=== PATIENT | male | born 1930 | race Caucasian/White ===

== ENCOUNTER 2016-10-11 13:28 | Emergency (ER) | payer MEDICARE, OTHER ==
[~2016-10-11] VITALS: Ht 172.7 cm; Wt 72.1 kg
[~2016-10-11 13:28] MED LIST: ASPI81TA82 PO; CLOP75 PO; COLA100C PO; ISTA0.5S EACH EYE; MAGN30S PO; MSM1000C4 PO; ROSU40 PO; SAW160TA PO; TRAM50 PO; TRAV0.00 EACH EYE
[2016-10-11 13:40] VITALS: BP 150/78; PULSE 65; RESP 16; TEMP 99.1; O2SAT 96
[2016-10-11] MEDS ORDERED: SODIUM CHLORIDE 0.9% FLUSH 5 ML FLUSH IVF PRN (14:00)
[2016-10-11 14:22] LABS: AUTOMATED NEUTROPHIL # 2.2 TH/MM3 (1.8-7.7); BASOPHIL % 0.9 % (0.0-2.0); EOSINOPHIL # 0.1 TH/MM3 (0-0.4); EOSINOPHIL % 1.6 % (0.0-4.0); HEMATOCRIT 38.3 % (39.0-51.0); LYMPH % 15.7 % (9.0-44.0); LYMPHOCYTE # 0.5 TH/MM3 (1.0-4.8); MEAN CELL VOLUME 86.8 FL (80.0-100.0); MEAN CORPUSCULAR HEMOGLOBIN 29.5 PG (27.0-34.0); MONO % 18.8 % (0.0-8.0); PLATELET COUNT 164 TH/MM3 (150-450); RED BLOOD COUNT 4.41 MIL/MM3 (4.50-5.90); RED CELL DISTRIBUTION WIDTH 13.6 % (11.6-17.2); WHITE BLOOD COUNT 3.4 TH/MM3 (4.0-11.0)
[2016-10-11 14:29] LABS: POTASSIUM 4.3 MEQ/L (3.5-5.1)
[2016-10-11 14:31] LABS: HEMO FLAGS AUTO DIFF
[2016-10-11 14:32] LABS: BICARBONATE 28.8 MEQ/L (21.0-32.0)
--- NOTE | 2016-10-11 14:33 | PD ---
HPI Chief Complaint: Fall Time Seen by Provider: 13:48 Travel History International Travel<30 days: No Contact w/Intl Traveler<30days: No Traveled to known affect area: No History of Present Illness HPI Patient is an 86-year-old male who is currently on Coumadin, presents to emergency room after a trip and fall. Patient reports that he was walking outside and tripped over a curb, reports that he fell and landed on his face. Patient reports that "I have a cut above my left eyebrow, it looks pretty bad." Patient reports that the last time he had his INR checked, was a week ago and INR was 1.8. Patient does take Coumadin as he has history of heart stents as well as a pacement. Patient reports no loss of consciousness after fall. Patient denies headache at this time. Patient reports that his tetanus is up-to -date. Patient with no vision changes, patient denies pain to his neck. Patient denies chest pain or shortness of breath. Patient with no other complaints. PFSH Past Medical History Hx Anticoagulant Therapy: Yes (COUMADIN) Arthritis: Yes Asthma: No Autoimmune Disease: No Blood Disorders: No Anxiety: No Depression: No Heart Rhythm Problems: Yes Cancer: No Cardiac Catheterization: Yes Cardiovascular Problems: Yes (2 STENTS, PM, SOLANO ) High Cholesterol: Yes Chemotherapy: No Chest Pain: Yes Congestive Heart Failure: No COPD: No Coronary Artery Disease: Yes Diabetes: No Diminished Hearing: No Endocrine: No GERD: No Glaucoma: No Genitourinary: No Headaches: No Hepatitis: No Hiatal Hernia: No Hypertension: Yes Immune Disorder: No Inguinal Hernia: Yes (BILAT GROINS WITH REPAIR) Implanted Vascular Access Dvce: Yes Kidney Stones: Yes Musculoskeletal: Yes (arthritis) Neurologic: No Psychiatric: No Reproductive: No Respiratory: No Immunizations Current: Yes Migraines: No Myocardial Infarction: Yes (X1) Radiation Therapy: No Renal Failure: No Seizures: No Sickle Cell Disease: No Sleep Apnea: No Thyroid Disease: No Ulcer: No Past Surgical History Abdominal Surgery: Yes (bilat ing hernia and mesh placement) AICD: No Appendectomy: No Arteriovenous Shunt: No Body Medical Devices: CARDIAC STENTS Cardiac Surgery: Yes (pacemaker) Cholecystectomy: No Coronary Stent: Yes (X 2) Ear Surgery: No Endocrine Surgery: No Eye Surgery: No Genitourinary Surgery: No Gynecologic Surgery: No Insulin Pump: No Joint Replacement: No Oral Surgery: No Pacemaker: No Thoracic Surgery: No Other Surgery: Yes (SANTINO ANAL 1988) Family History Family History: Negative Social History Alcohol Use: Yes (2 OZ DAILY ) Tobacco Use: No Substance Use: No Allergies-Medications (Allergen,Severity, Reaction): Coded Allergies: Lipitor (Verified Allergy, Severe, HALLUCINATION, 10/11/16) Oxycontin (Verified Allergy, Severe, HALLUCINATION, 10/11/16) Reported Meds & Prescriptions Reported Meds & Active Scripts Active Reported Warfarin 7.5 Mg Tab 7.5 Mg PO DAILY Atorvastatin (Atorvastatin Calcium) 40 Mg Tab 40 Mg PO HS Timolol Opth Drops 0.5 % Soln 1 Drop EACH EYE BID Saw [place] ([place]ren[place] Repens) 450 Mg Cap 450 Mg PO DAILY Review of Systems General / Constitutional: No: Fever Eyes: No: Visual changes HENT: No: Headaches, Lightheadedness Cardiovascular: No: Chest Pain or Discomfort Respiratory: No: Shortness of Breath Gastrointestinal: No: Abdominal Pain Genitourinary: No: Dysuria Musculoskeletal: No: Pain Skin: Positive Other (laceration about left eyebrow ), No Rash Neurologic: No: Weakness Psychiatric: No: Depression Endocrine: No: Polydipsia Hematologic/Lymphatic: No: Easy Bruising Physical Exam Narrative GENERAL: Patient with no acute distress SKIN: Warm and dry. Patient with 4 cm linear laceration above left eyebrow - bleeding controlled at this time. HEAD: Atraumatic. Normocephalic. EYES: Pupils equal and round. No scleral icterus. No injection or drainage. ENT: No nasal bleeding or discharge. Mucous membranes pink and moist. NECK: Trachea midline. No JVD. Patient with no midline tenderness CARDIOVASCULAR: Regular rate and rhythm. No murmur appreciated. RESPIRATORY: No accessory muscle use. Clear to auscultation. Breath sounds equal bilaterally. GASTROINTESTINAL: Abdomen soft, non-tender, nondistended. Hepatic and splenic margins not palpable. MUSCULOSKELETAL: No obvious deformities. No clubbing. No cyanosis. No edema. NEUROLOGICAL: Awake and alert. No obvious cranial nerve deficits. Motor grossly within normal limits. Normal speech. PSYCHIATRIC: Appropriate mood and affect; insight and judgment normal. Data Data Last Documented VS Vital Signs Date Time Temp Pulse Resp B/P Pulse Ox O2 Delivery O2 Flow Rate FiO2 10/11/16 15:50 66 16 152/76 98 10/11/16 13:40 99.1 Orders Basic Metabolic Panel (Bmp) (10/11/16 13:57) Complete Blood Count With Diff (10/11/16 13:57) Prothrombin Time / Inr (Pt) (10/11/16 13:57) Act Partial Throm Time (Ptt) (10/11/16 13:57) Ct Brain W/O Iv Contrast(Rout) (10/11/16 13:57) Ct Cerv Spine W/O Contrast (10/11/16 13:57) Ct Facial Bones W/O Iv Cont (10/11/16 13:57) Iv Access Insert/Monitor (10/11/16 13:57) Wound Care (10/11/16 13:57) Sodium Chloride 0.9% Flush (Ns Flush) (10/11/16 14:00) Lidocai-Epi 1%-1:100,000 Inj (Xylocaine- (10/11/16 15:15) Labs Laboratory Tests Test 10/11/16 14:10 White Blood Count 3.4 TH/MM3 Red Blood Count 4.41 MIL/MM3 Hemoglobin 13.0 GM/DL Hematocrit 38.3 % Mean Corpuscular Volume 86.8 FL Mean Corpuscular Hemoglobin 29.5 PG Mean Corpuscular Hemoglobin 34.0 % Concent Red Cell Distribution Width 13.6 % Platelet Count 164 TH/MM3 Mean Platelet Volume 8.3 FL Neutrophils (%) (Auto) 63.0 % Lymphocytes (%) (Auto) 15.7 % Monocytes (%) (Auto) 18.8 % Eosinophils (%) (Auto) 1.6 % Basophils (%) (Auto) 0.9 % Neutrophils # (Auto) 2.2 TH/MM3 Lymphocytes # (Auto) 0.5 TH/MM3 Monocytes # (Auto) 0.6 TH/MM3 Eosinophils # (Auto) 0.1 TH/MM3 Basophils # (Auto) 0.0 TH/MM3 CBC Comment AUTO DIFF Differential Total Cells 100 Counted Neutrophils % (Manual) 75 % Band Neutrophils % 2 % Lymphocytes % 14 % Monocytes % 8 % Eosinophils % 1 % Neutrophils # (Manual) 2.6 TH/MM3 Differential Comment FINAL DIFF MANUAL Prothrombin Time 17.7 SEC Prothromb Time International 1.6 RATIO Ratio Activated Partial 33.8 SEC Thromboplast Time Sodium Level 137 MEQ/L Potassium Level 4.3 MEQ/L Chloride Level 101 MEQ/L Carbon Dioxide Level 28.8 MEQ/L Anion Gap 7 MEQ/L Blood Urea Nitrogen 12 MG/DL Creatinine 0.90 MG/DL Estimat Glomerular Filtration 80 ML/MIN Rate Random Glucose 103 MG/DL Calcium Level 8.7 MG/DL MDM Medical Decision Making Medical Screen Exam Complete: Yes Emergency Medical Condition: Yes Interpretation(s) Vital Signs Date Time Temp Pulse Resp B/P Pulse Ox O2 Delivery O2 Flow Rate FiO2 10/11/16 13:40 99.1 65 16 150/78 96 Differential Diagnosis Facial laceration, intracranial hemorrhage, scalp hematoma, scalp fracture, cervical spine fracture, coumadin coagulopathy Narrative Course Patient is an 86-year-old male who currently is on Coumadin, presents to emergency room after a trip and fall today. Reports that he was outside, reports that he tripped over a curb and landed on his face. Patient with no loss of consciousness at scene. Patient reports that he was able to get up and walk but noticed a laceration above his left eyebrow, patient here for laceration repair. Patient currently with no headache or dizziness or vision changes at this time. Patient with no complaints. Patient reports that tetanus is up-to-date. Will check INR Ct head, facial bones and neck ordered to evaluate for possible fracture/bleed. Vital Signs Date Time Temp Pulse Resp B/P Pulse Ox O2 Delivery O2 Flow Rate FiO2 10/11/16 15:50 66 16 152/76 98 10/11/16 13:40 99.1 65 16 150/78 96 CBC & BMP Diagram 10/11/16 14:10 Laboratory Tests Test 10/11/16 14:10 White Blood Count 3.4 TH/MM3 (4.0-11.0) Red Blood Count 4.41 MIL/MM3 (4.50-5.90) Hemoglobin 13.0 GM/DL (13.0-17.0) Hematocrit 38.3 % (39.0-51.0) Mean Corpuscular Volume 86.8 FL (80.0-100.0) Mean Corpuscular Hemoglobin 29.5 PG (27.0-34.0) Mean Corpuscular Hemoglobin 34.0 % Concent (32.0-36.0) Red Cell Distribution Width 13.6 % (11.6-17.2) Platelet Count 164 TH/MM3 (150-450) Mean Platelet Volume 8.3 FL (7.0-11.0) Neutrophils (%) (Auto) 63.0 % (16.0-70.0) Lymphocytes (%) (Auto) 15.7 % (9.0-44.0) Monocytes (%) (Auto) 18.8 % (0.0-8.0) Eosinophils (%) (Auto) 1.6 % (0.0-4.0) Basophils (%) (Auto) 0.9 % (0.0-2.0) Neutrophils # (Auto) 2.2 TH/MM3 (1.8-7.7) Lymphocytes # (Auto) 0.5 TH/MM3 (1.0-4.8) Monocytes # (Auto) 0.6 TH/MM3 (0-0.9) Eosinophils # (Auto) 0.1 TH/MM3 (0-0.4) Basophils # (Auto) 0.0 TH/MM3 (0-0.2) CBC Comment AUTO DIFF Differential Total Cells 100 Counted Neutrophils % (Manual) 75 % (16-70) Band Neutrophils % 2 % (0-6) Lymphocytes % 14 % (9-44) Monocytes % 8 % (0-8) Eosinophils % 1 % (0-4) Neutrophils # (Manual) 2.6 TH/MM3 (1.8-7.7) Differential Comment FINAL DIFF MANUAL Prothrombin Time 17.7 SEC (9.8-11.6) Prothromb Time International 1.6 RATIO Ratio Activated Partial 33.8 SEC Thromboplast Time (24.3-30.1) Sodium Level 137 MEQ/L (136-145) Potassium Level 4.3 MEQ/L (3.5-5.1) Chloride Level 101 MEQ/L (98-107) Carbon Dioxide Level 28.8 MEQ/L (21.0-32.0) Anion Gap 7 MEQ/L (5-15) Blood Urea Nitrogen 12 MG/DL (7-18) Creatinine 0.90 MG/DL (0.60-1.30) Estimat Glomerular Filtration 80 ML/MIN (>89) Rate Random Glucose 103 MG/DL (74-106) Calcium Level 8.7 MG/DL (8.5-10.1) INR is subtherapeutic at 1.6- patient will call Dr. Conroy for further coumadin managment Patient return to the emergency room in 48 hours for wound check. Signs and symptoms of when to return to the emergency room reviewed with patient. I did review all studies as well as all incidental findings with patient in detail. Suture removal in 7 days. Patients daughter at bedside, will drive him home. Last Impressions Maxillofacial CT 10/11/16 1280 Signed Impressions: Service Date/Time: Tuesday, October 11, 2016 14:16 - CONCLUSION: 1. Left frontal scalp laceration. No skull fracture seen. 2. Changes in the left maxillary sinus, including thickening of the lateral osseous wall, characteristic of chronic sinus disease. Dirk Colon MD Head CT 10/11/16 0897 Signed Impressions: Service Date/Time: Tuesday, October 11, 2016 14:16 - CONCLUSION: Normal examination for a patient of this age. No significant change has occurred. Ian Chung MD Cervical Spine CT 10/11/16 [id number] Signed Impressions: Service Date/Time: Tuesday, October 11, 2016 14:16 - CONCLUSION: 1. No acute bony fracture. 2. Diffuse primary bony degenerative changes, disc degeneration and disc space narrowing throughout the cervical spine. Ian Chung MD Diagnosis Primary Impression: Facial laceration Qualified Code: S01.81XA - Facial laceration, initial encounter Additional Impressions: Subtherapeutic international normalized ratio (INR) Head injury Qualified Code: S09.90XA - Head injury, initial encounter Patient Instructions: General Instructions Additional Instructions: Please call your primary care doctor first thing in the morning for earliest follow-up Your INR today was subtherapeutic, please call Dr. Johnnie Conroy and let them know that it your INR was 1.6 today and your Coumadin level will need to be adjusted. Please return to the emergency room or to your primary care doctor in 48 hours for wound check Return to ER if you notice any signs of infection, redness, drainage from ER wound. Place bacitracin to area and keep wound clean. Please follow-up with your primary care doctor or return to emergency room for suture removal in 7 days Please return to emergency room if symptoms progress or worsen Disposition: 01 DISCHARGE HOME Condition: Stable Brianna Santizo DO Oct 11, 2016 14:33
[2016-10-11 14:35] LABS: APTT (PATIENT) 33.8 SEC (24.3-30.1); INTERNATIONAL NORMALIZED RATIO 1.6 RATIO; PROTHROMBIN TIME - PATIENT 17.7 SEC (9.8-11.6)
--- NOTE | 2016-10-11 14:44 | RADHPO ---
EXAM DATE/TIME: 10/11/2016 14:16 [facility] COMPARISON: CT BRAIN W/O CONTRAST, December 11, 2015, 13:41. INDICATIONS : Fall today, laceration to left forehead. RADIATION DOSE: 56.13 CTDIvol (mGy) MEDICAL HISTORY : Myocardial infarction. SURGICAL HISTORY : Pacemaker. ENCOUNTER: Initial ACUITY: 1 day PAIN SCALE: 2/10 LOCATION: Left frontal head TECHNIQUE: Multiple contiguous axial images were obtained of the head. Using automated exposure control and adj ustment of the mA and/or kV according to patient size, radiation dose was kept as low as reasonably a chievable to obtain optimal diagnostic quality images. FINDINGS: CEREBRUM: The ventricles are normal for age. There is stable bilateral cortical atrophy. No evidence of midline shift, mass lesion, hemorrhage or acute infarction. No extra-axial fluid collections are seen. POSTERIOR FOSSA: The cerebellum and brainstem are intact. The 4th ventricle is midline. The cerebellopontine angle i s unremarkable. EXTRACRANIAL: The visualized portion of the orbits is intact. SKULL: The calvaria is intact. No evidence of skull fracture. CONCLUSION: Normal examination for a patient of this age. No significant change has occurred. Ian Chung MD on October 11, 2016 at 14:41 Board Certified Radiologist. This report was verified electronically.
[2016-10-11] MEDS ORDERED: ATOR40TA16 PO (14:46)
[2016-10-11] MEDS ORDERED: WARF-21 PO (14:46)
[2016-10-11] MEDS ORDERED: SAW450CA2 PO (14:46)
[2016-10-11] MEDS ORDERED: TIMO0.5S30 EACH EYE (14:46)
--- NOTE | 2016-10-11 14:54 | RADHPO ---
EXAM DATE/TIME: 10/11/2016 14:16 [facility] COMPARISON: No previous studies available for comparison. INDICATIONS : Fall today, laceration to left forehead. RADIATION DOSE: 26.41 CTDIvol (mGy) MEDICAL HISTORY : Myocardial infarction. SURGICAL HISTORY : Pacemaker. ENCOUNTER: Initial ACUITY: 1 day PAIN SCALE: 0/10 LOCATION: Bilateral neck TECHNIQUE: Volumetric scanning of the cervical spine was performed. Multiplanar reconstructions in the sagittal, coronal and oblique axial planes were performed. Using automated exposure control and adjustment o f the mA and/or kV according to patient size, radiation dose was kept as low as reasonably achievable to obtain optimal diagnostic quality images. FINDINGS: No acute bony fracture. There is good alignment of the cervical spine. There is extensive primary bon y degenerative changes, disc degeneration and disc space height throughout the entire cervical spine. No spondylolisthesis is demonstrated. There is disc degeneration and disc space narrowing along with broad-based bulging and disc osteophyte complexes at C4-5, C5-6 and C6-7. There is narrowing of the neural foramina at these levels. CONCLUSION: 1. No acute bony fracture. 2. Diffuse primary bony degenerative changes, disc degeneration and disc space narrowing throughout t he cervical spine. Ian Chung MD on October 11, 2016 at 14:50 Board Certified Radiologist. This report was verified electronically.
[2016-10-11 15:11] LABS: BANDS 2 % (0-6); EOSINOPHILS 1 % (0-4); NEUTROPHIL # MANUAL DIFF 2.6 TH/MM3 (1.8-7.7); POLYS (SEG NEUTROPHILS) 75 % (16-70); SCAN/DIFF FINAL DIFF MANUAL; WBC DIFF SAMPLE 100
[2016-10-11] MEDS ORDERED: LIDOCAINE 1%/EPINEPHrine 1:100,000 SOLN 20 ML VIAL INFIL ONE (15:15)
--- NOTE | 2016-10-11 15:26 | RADHPO ---
EXAM DATE/TIME: 10/11/2016 14:16 [facility] COMPARISON: CT BRAIN W/O CONTRAST, October 11, 2016, 14:16. INDICATIONS : Fall today, laceration to left forehead. RADIATION DOSE: 25.69 CTDIvol (mGy) MEDICAL HISTORY : Myocardial infarction. SURGICAL HISTORY : Pacemaker. ENCOUNTER: Initial ACUITY: 1 day PAIN SCORE: 2/10 LOCATION: Left forehead TECHNIQUE: Volumetric scanning of the facial bones was performed. Using automated exposure control and adjustme nt of the mA and/or kV according to patient size, radiation dose was kept as low as reasonably achiev able to obtain optimal diagnostic quality images. FINDINGS: There is soft tissue thickening and laceration of the left lateral frontal region. No radiopaque for eign bodies seen. The osseous structures about the frontal sinus are intact. No facial bone fractur es seen. There is asymmetric thickening of the lateral maxillary sinus wall, soft tissue narrowing of the oste omeatal outflow tract on the left side, and some mucosal thickening suggesting changes related to chr onic sinusitis. No air-fluid level seen in the left maxillary sinus. There is mild nasal septal dev iation towards the left and absence of the left middle turbinate. The mandible, zygomatic arch this, nasal bone, and infraorbital region is intact. CONCLUSION: 1. Left frontal scalp laceration. No skull fracture seen. 2. Changes in the left maxillary sinus, including thickening of the lateral osseous wall, characteris tic of chronic sinus disease. Dirk Colon MD on October 11, 2016 at 15:20 Board Certified Radiologist. This report was verified electronically.
[2016-10-11 15:50] VITALS: BP 152/76; PULSE 66; RESP 16; O2SAT 98
--- NOTE | 2016-10-11 15:53 | PD ---
Physical Exam Time Seen by Provider: 15:30 Narrative I was asked by Dr. Santizo to repair a laceration on this patient. Please see her note for further details. Data Data Last Documented VS Vital Signs Date Time Temp Pulse Resp B/P Pulse Ox O2 Delivery O2 Flow Rate FiO2 10/11/16 13:40 99.1 65 16 150/78 96 Orders Basic Metabolic Panel (Bmp) (10/11/16 13:57) Complete Blood Count With Diff (10/11/16 13:57) Prothrombin Time / Inr (Pt) (10/11/16 13:57) Act Partial Throm Time (Ptt) (10/11/16 13:57) Ct Brain W/O Iv Contrast(Rout) (10/11/16 13:57) Ct Cerv Spine W/O Contrast (10/11/16 13:57) Ct Facial Bones W/O Iv Cont (10/11/16 13:57) Iv Access Insert/Monitor (10/11/16 13:57) Wound Care (10/11/16 13:57) Sodium Chloride 0.9% Flush (Ns Flush) (10/11/16 14:00) Lidocai-Epi 1%-1:100,000 Inj (Xylocaine- (10/11/16 15:15) Labs Laboratory Tests Test 10/11/16 14:10 White Blood Count 3.4 TH/MM3 Red Blood Count 4.41 MIL/MM3 Hemoglobin 13.0 GM/DL Hematocrit 38.3 % Mean Corpuscular Volume 86.8 FL Mean Corpuscular Hemoglobin 29.5 PG Mean Corpuscular Hemoglobin 34.0 % Concent Red Cell Distribution Width 13.6 % Platelet Count 164 TH/MM3 Mean Platelet Volume 8.3 FL Neutrophils (%) (Auto) 63.0 % Lymphocytes (%) (Auto) 15.7 % Monocytes (%) (Auto) 18.8 % Eosinophils (%) (Auto) 1.6 % Basophils (%) (Auto) 0.9 % Neutrophils # (Auto) 2.2 TH/MM3 Lymphocytes # (Auto) 0.5 TH/MM3 Monocytes # (Auto) 0.6 TH/MM3 Eosinophils # (Auto) 0.1 TH/MM3 Basophils # (Auto) 0.0 TH/MM3 CBC Comment AUTO DIFF Differential Total Cells 100 Counted Neutrophils % (Manual) 75 % Band Neutrophils % 2 % Lymphocytes % 14 % Monocytes % 8 % Eosinophils % 1 % Neutrophils # (Manual) 2.6 TH/MM3 Differential Comment FINAL DIFF MANUAL Prothrombin Time 17.7 SEC Prothromb Time International 1.6 RATIO Ratio Activated Partial 33.8 SEC Thromboplast Time Sodium Level 137 MEQ/L Potassium Level 4.3 MEQ/L Chloride Level 101 MEQ/L Carbon Dioxide Level 28.8 MEQ/L Anion Gap 7 MEQ/L Blood Urea Nitrogen 12 MG/DL Creatinine 0.90 MG/DL Estimat Glomerular Filtration 80 ML/MIN Rate Random Glucose 103 MG/DL Calcium Level 8.7 MG/DL [facility] Medical Record Reviewed: Yes Supervised Visit with RAFAEL: Yes Procedures Procedure Narrative LACERATION LOCATION: Left eyebrow LENGTH: 3.5 cm NUMBER OF STITCHES/JORY: 3 simple interrupted buried, 6 simple interrupted REPAIR: The area of the laceration was prepped with Betadine and sterilely draped. The laceration was infiltrated with 1% lidocaine with epinephrine. The wound was copiously irrigated and explored without evidence of foreign body , tendon injury or neurovascular injury. The wound was closed using 5-0 Vicryl and 6-0 Prolene. This was a double layer repair. A sterile dressing was applied. The patient was advised to keep the dressing clean and dry. Patient tolerated the procedure well. Amarilis Moss Oct 11, 2016 15:53
[2016-10-11] MEDS ORDERED: BACITRACIN TOP OINT 15 GM TUBE TOP ONE (16:30)
== END 2016-10-11 16:44 | disposition home or self-care (01) ==
LOC: PHED 13:28
DX: S01.112A Laceration without foreign body of left eyelid and periocular area, initial encounter (principal); W10.1XXA Fall (on)(from) sidewalk curb, initial encounter; Y93.01 Activity, walking, marching and hiking; Z79.01 Long term (current) use of anticoagulants
CPT/HCPCS: 12052; 70450; 70486; 72125; 80048; 85007; 85027; 85610; 85730

== ENCOUNTER 2017-09-03 17:15 | Emergency (ER) | payer MEDICARE, OTHER ==
[~2017-09-03] VITALS: Ht 172.7 cm; Wt 70.0 kg
[~2017-09-03 17:15] MED LIST changes: -ASPI81TA82 PO; +ATOR40TA16 PO; -CLOP75 PO; -COLA100C PO; -ISTA0.5S EACH EYE; -MAGN30S PO; -MSM1000C4 PO; -ROSU40 PO; -SAW160TA PO; +SAW450CA2 PO; +TIMO0.5S30 EACH EYE; -TRAM50 PO; -TRAV0.00 EACH EYE; +WARF-21 PO
[2017-09-03 17:29] VITALS: BP 147/94; PULSE 60; RESP 16; TEMP 98.2; O2SAT 97
[2017-09-03] MEDS ORDERED: SODIUM CHLORIDE 0.9% FLUSH 10 ML FLUSH IVF PRN (17:45)
--- NOTE | 2017-09-03 17:57 | PD ---
HPI Chief Complaint: Fall Time Seen by Provider: 17:34 Travel History International Travel<30 days: No Contact w/Intl Traveler<30days: No Traveled to known affect area: No History of Present Illness HPI 87 y/o male states he got tripped up on a curb. He injured his left chest wall , his left hand and hit his left forehead. He did not lose consciousness. He states he is on Coumadin and had this checked last week and it was normal. He denies any other concurrent complaints. Fall was from standing. Severity is no loss of consciousness. Duration is shortly prior to arrival. He states he is on the Coumadin for his heart for which he follows with Dr. Conroy. He states he recently followed with him and had a normal heart checkup. PFSH Past Medical History Hx Anticoagulant Therapy: Yes (COUMADIN) Arthritis: Yes Asthma: No Autoimmune Disease: No Blood Disorders: No Anxiety: No Depression: No Heart Rhythm Problems: Yes Cancer: No Cardiac Catheterization: Yes Cardiovascular Problems: Yes (2 STENTS, PM, SOLANO ) High Cholesterol: Yes Chemotherapy: No Chest Pain: Yes Congestive Heart Failure: No COPD: No Coronary Artery Disease: Yes Diabetes: No Diminished Hearing: No Endocrine: No GERD: No Glaucoma: No Genitourinary: No Headaches: No Hepatitis: No Hiatal Hernia: No Hypertension: Yes Immune Disorder: No Inguinal Hernia: Yes (BILAT GROINS WITH REPAIR) Implanted Vascular Access Dvce: Yes Kidney Stones: Yes Musculoskeletal: Yes (arthritis) Neurologic: No Psychiatric: No Reproductive: No Respiratory: No Immunizations Current: Yes Migraines: No Myocardial Infarction: Yes (X1) Radiation Therapy: No Renal Failure: No Seizures: No Sickle Cell Disease: No Sleep Apnea: No Thyroid Disease: No Ulcer: No Past Surgical History Abdominal Surgery: Yes (bilat ing hernia and mesh placement) AICD: No Appendectomy: No Arteriovenous Shunt: No Body Medical Devices: CARDIAC STENTS Cardiac Surgery: Yes (pacemaker) Cholecystectomy: No Coronary Stent: Yes (X 2) Ear Surgery: No Endocrine Surgery: No Eye Surgery: No Genitourinary Surgery: No Gynecologic Surgery: No Insulin Pump: No Joint Replacement: No Oral Surgery: No Pacemaker: No Thoracic Surgery: No Other Surgery: Yes (SANTINO ANAL 1987) Social History Alcohol Use: Yes (2 OZ DAILY ) Tobacco Use: No Substance Use: No Allergies-Medications (Allergen,Severity, Reaction): Coded Allergies: atorvastatin (Verified Allergy, Severe, HALLUCINATION, 09/03/17) oxycodone (Verified Allergy, Severe, HALLUCINATION, 09/03/17) Reported Meds & Prescriptions Reported Meds & Active Scripts Active Reported Dorzolamide Opth Drops (Dorzolamide HCl) 2% Soln 1 Drop RIGHT EYE BID Brimonidine Opth Drops (Brimonidine Tartrate) 0.2% Soln 1 Drop EACH EYE BID Latanoprost Opth Drops (Latanoprost) 0.005% Drops 1 Drop EACH EYE BID Refrigerate until opened. Glucosamine-Chondroitin 500-400 Mg Tab 1 Tab PO DAILY Warfarin 7.5 Mg Tab 5 Mg PO DAILY Atorvastatin (Atorvastatin Calcium) 40 Mg Tab 40 Mg PO HS Timolol Opth Drops 0.5 % Soln 1 Drop EACH EYE BID [place] (Serenoa Repens) 450 Mg Cap 450 Mg PO DAILY Review of Systems ROS Limitations: Poor Historian Except as stated in HPI: all other systems reviewed are Neg Physical Exam Exam Limitations: Poor Historian Narrative General: 87 y/o patient in no apparent distress Skin: trauma noted to right hand with skin tear, laceration to left forehead Eyes: Pupils equal, eomi ENT: no septal hematoma NECK: no pain with range of motion in midline, nexus criteria negative Cardiovascular: Regular rate and rhythm Respiratory: Normal respiratory effort noted, clear to auscultation bilaterally Abdomen: soft, nontender, nondistended Back: No step-offs, midline spine nontender with palpation Extremities: Pain with palpation of right hand, no deep lacerations over, neurovascularly intact, no pain with rom of other joints Neuro: awake, clear speech, sensation and motor grossly intact Data Data Last Documented VS Vital Signs Date Time Temp Pulse Resp B/P (MAP) Pulse Ox O2 Delivery O2 Flow Rate FiO2 09/03/17 18:03 98 Room Air 09/03/17 17:29 98.2 60 16 147/94 (111) Orders Orders Basic Metabolic Panel (Bmp) (09/03/17 17:44) Complete Blood Count With Diff (09/03/17 17:44) Prothrombin Time / Inr (Pt) (09/03/17 17:44) Act Partial Throm Time (Ptt) (09/03/17 17:44) Type And Screen (09/03/17 17:44) Chest, Single Ap (09/03/17 17:44) Pelvis, Ap Only (Routine) (09/03/17 17:44) Ct Brain W/O Iv Contrast(Rout) (09/03/17 17:44) Iv Access Insert/Monitor (09/03/17 17:44) Ecg Monitoring (09/03/17 17:44) Oximetry (09/03/17 17:44) Sodium Chloride 0.9% Flush (Ns Flush) (09/03/17 17:45) Hand, Complete ([id number]) (09/03/17 ) Acetaminophen (Tylenol) (09/03/17 19:00) Labs Laboratory Tests Test 09/03/17 18:40 White Blood Count 8.6 TH/MM3 Red Blood Count 4.69 MIL/MM3 Hemoglobin 13.7 GM/DL Hematocrit 43.3 % Mean Corpuscular Volume 92.4 FL Mean Corpuscular Hemoglobin 29.3 PG Mean Corpuscular Hemoglobin Concent 31.7 % Red Cell Distribution Width 13.6 % Platelet Count 188 TH/MM3 Mean Platelet Volume 8.7 FL Neutrophils (%) (Auto) 74.9 % Lymphocytes (%) (Auto) 10.5 % Monocytes (%) (Auto) 9.2 % Eosinophils (%) (Auto) 4.9 % Basophils (%) (Auto) 0.5 % Neutrophils # (Auto) 6.5 TH/MM3 Lymphocytes # (Auto) 0.9 TH/MM3 Monocytes # (Auto) 0.8 TH/MM3 Eosinophils # (Auto) 0.4 TH/MM3 Basophils # (Auto) 0.0 TH/MM3 CBC Comment DIFF FINAL Differential Comment Sodium Level 137 MEQ/L Potassium Level 4.1 MEQ/L Chloride Level 102 MEQ/L [facility] Medical Decision Making Medical Screen Exam Complete: Yes Emergency Medical Condition: Yes Medical Record Reviewed: Yes (past history confirmed) Interpretation(s) CBC & BMP Diagram 09/03/17 18:40 Calcium Level 8.5 Last 24 hours Impressions Pelvis X-Ray 09/03/171743 Signed Impressions: Service Date/Time: Sunday, September 03, 2017 18:17 - CONCLUSION: The bony pelvic ring is grossly intact. Dirk Colon MD Head CT [id number]/03/171743 Signed Impressions: Service Date/Time: Sunday, September 03, 2017 18:00 - CONCLUSION: 1. No acute findings in the brain. 2. Age appropriate atrophy. Dirk Colon MD Chest X-Ray 09/03/17 1744 Signed Impressions: Service Date/Time: Sunday, September 03, 2017 18:17 - CONCLUSION: The lungs are clear. No evidence of pneumothorax. Dirk Colon MD Hand X-Ray 09/03/17 0000 Signed Impressions: Service Date/Time: Sunday, September 03, 2017 18:17 - CONCLUSION: 1. No evidence of recent bony injury. No radiopaque foreign bodies. 2. 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 Personally called CT to coordinate expediting CT brain given Coumadin use Physician Communication Physician Communication dr brooks to follow labs and reeval, midlevel to repair laceration Elsy Samano MD Sep 03, 2017 17:57
[2017-09-03 18:03] VITALS: O2SAT 98
--- NOTE | 2017-09-03 18:18 | RADRPT ---
EXAM DATE/TIME: 09/03/2017 18:00 [facility] COMPARISON: CT BRAIN W/O CONTRAST, October 11, 2016, 14:16. INDICATIONS : Trauma. Fall. Left forehead laceration. RADIATION DOSE: 63.86 CTDIvol (mGy) MEDICAL HISTORY : Cerebrovascular disease. Myocardial infarction. SURGICAL HISTORY : Coronary artery stent. Pacemaker.Inguinal hernia repair. ENCOUNTER: Initial ACUITY: 1 day PAIN SCALE: 2/10 LOCATION: Left frontal TECHNIQUE: Multiple contiguous axial images were obtained of the head. Using automated exposure control and adj ustment of the mA and/or kV according to patient size, radiation dose was kept as low as reasonably a chievable to obtain optimal diagnostic quality images. DICOM format image data is available electro nically for review and comparison. FINDINGS: CEREBRUM: The ventricles are normal for age. No evidence of midline shift, mass lesion, hemorrhage or acute in farction. No extra-axial fluid collections are seen. POSTERIOR FOSSA: The cerebellum and brainstem are intact. The 4th ventricle is midline. The cerebellopontine angle i s unremarkable. EXTRACRANIAL: The visualized portion of the orbits is intact. SKULL: The calvaria is intact. No evidence of skull fracture. CONCLUSION: 1. No acute findings in the brain. 2. Age appropriate atrophy. Dirk Colon MD on September 03, 2017 at 18:14 Board Certified Radiologist. This report was verified electronically.
--- NOTE | 2017-09-03 18:42 | RADRPT ---
EXAM DATE/TIME: 09/03/2017 18:17 [facility] COMPARISON: No previous studies available for comparison. INDICATIONS : Trauma. Fall. MEDICAL HISTORY : Cerebrovascular disease. Myocardial infarction SURGICAL HISTORY : Coronary artery stent. Pacemaker.Inguinal hernia repair ENCOUNTER: Initial ACUITY: 1 day PAIN SCORE: 0/10 LOCATION: Bilateral pelvis FINDINGS: A single frontal view of the pelvis demonstrates no evidence of fracture. The bony pelvic ring is in tact. Bony mineralization is normal. The soft tissues are intact. Degenerative changes in the lowe r lumbar spine. CONCLUSION: The bony pelvic ring is grossly intact. Dirk Colon MD on September 03, 2017 at 18:40 Board Certified Radiologist. This report was verified electronically.
--- NOTE | 2017-09-03 18:42 | RADRPT ---
EXAM DATE/TIME: 09/03/2017 18:17 [facility] COMPARISON: CHEST SINGLE AP, December 13, 2015, 15:42. INDICATIONS : Right anterior, superior chest pain post fall. MEDICAL HISTORY : Cerebrovascular disease. Myocardial infarction SURGICAL HISTORY : Coronary artery stent. Pacemaker.Inguinal hernia repair ENCOUNTER: Initial ACUITY: 1 day PAIN SCORE: 8/10 LOCATION: Right chest FINDINGS: A single view of the chest demonstrates the lungs to be symmetrically aerated without evidence of mas s, infiltrate or effusion. The cardiomediastinal contours are unremarkable. Osseous structures are intact. Transvenous pacer lead stable position. No evidence of pneumothorax. CONCLUSION: The lungs are clear. No evidence of pneumothorax. Dirk Colon MD on September 03, 2017 at 18:39 Board Certified Radiologist. This report was verified electronically.
--- NOTE | 2017-09-03 18:45 | RADRPT ---
EXAM DATE/TIME: 09/03/2017 18:17 [facility] COMPARISON: No previous studies available for comparison. INDICATIONS : Left hand laceration post fall. MEDICAL HISTORY : Cerebrovascular disease. Myocardial infarction SURGICAL HISTORY : Coronary artery stent. Pacemaker.Inguinal hernia repair ENCOUNTER: Initial ACUITY: 1 day PAIN SCORE: 1/10 LOCATION: Left upper extremity FINDINGS: Mild irregular contour to the soft tissues about the medial hand without radiopaque foreign body. Th e osseous structures are grossly intact without evidence of fracture or bony destruction. There is a dvanced arthropathy involving the DIP joints, 1st and 2nd MCP, and mild arthropathy of the 1st CMC ar ticulation. No evidence of subluxation. CONCLUSION: 1. No evidence of recent bony injury. No radiopaque foreign bodies. 2. 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 This report was verified electronically.
[2017-09-03] MEDS ORDERED: ACETAMINOPHEN 325 MG TAB PO ONE (19:00)
[2017-09-03 19:01] LABS: AUTOMATED NEUTROPHIL # 6.5 TH/MM3 (1.8-7.7); BASOPHIL % 0.5 % (0.0-2.0); EOSINOPHIL # 0.4 TH/MM3 (0-0.4); EOSINOPHIL % 4.9 % (0.0-4.0); HEMATOCRIT 43.3 % (39.0-51.0); HEMOGLOBIN 13.7 GM/DL (13.0-17.0); LYMPH % 10.5 % (9.0-44.0); LYMPHOCYTE # 0.9 TH/MM3 (1.0-4.8); MEAN CELL VOLUME 92.4 FL (80.0-100.0); MEAN CORPUSCULAR HEMOGLOBIN 29.3 PG (27.0-34.0); MEAN CORPUSCULAR HGB CONC 31.7 % (32.0-36.0); MEAN PLATELET VOLUME 8.7 FL (7.0-11.0); MONO % 9.2 % (0.0-8.0); MONOCYTE # 0.8 TH/MM3 (0-0.9); NEUT % 74.9 % (16.0-70.0); PLATELET COUNT 188 TH/MM3 (150-450); RED BLOOD COUNT 4.69 MIL/MM3 (4.50-5.90); RED CELL DISTRIBUTION WIDTH 13.6 % (11.6-17.2); WHITE BLOOD COUNT 8.6 TH/MM3 (4.0-11.0)
[2017-09-03] MEDS ORDERED: BRIM0.2S4 EACH EYE (19:09)
[2017-09-03] MEDS ORDERED: GLUC500T4 PO (19:09)
[2017-09-03] MEDS ORDERED: LATA0.002 EACH EYE (19:09)
[2017-09-03] MEDS ORDERED: DORZ2SOL RIGHT EYE (19:09)
[2017-09-03 19:11] LABS: BICARBONATE 28.6 MEQ/L (21.0-32.0); CALCIUM 8.5 MG/DL (8.5-10.1)
[2017-09-03 19:14] LABS: PROTHROMBIN TIME - PATIENT 29.8 SEC (9.8-11.6)
[2017-09-03 19:15] LABS: CREATININE 0.9 MG/DL (0.60-1.30)
--- NOTE | 2017-09-03 19:30 | PD ---
Physical Exam Date Seen by Provider: Sep 03, 2017 Time Seen by Provider: 19:23 Narrative Accepted in transfer of care from Dr. Samano Data Data Last Documented VS Vital Signs Date Time Temp Pulse Resp B/P (MAP) Pulse Ox O2 Delivery O2 Flow Rate FiO2 09/03/17 21:20 09/03/17 20:56 72 16 97 Room Air 09/03/17 17:29 98.2 Orders Orders Basic Metabolic Panel (Bmp) (09/03/17 17:44) Complete Blood Count With Diff (09/03/17 17:44) Prothrombin Time / Inr (Pt) (09/03/17 17:44) Act Partial Throm Time (Ptt) (09/03/17 17:44) Type And Screen (09/03/17 17:44) Chest, Single Ap (09/03/17 17:44) Pelvis, Ap Only (Routine) (09/03/17 17:44) Ct Brain W/O Iv Contrast(Rout) (09/03/17 17:44) Iv Access Insert/Monitor (09/03/17 17:44) Ecg Monitoring (09/03/17 17:44) Oximetry (09/03/17 17:44) Sodium Chloride 0.9% Flush (Ns Flush) (09/03/17 17:45) Hand, Complete ([id number]) (09/03/17 ) Acetaminophen (Tylenol) (09/03/17 19:00) Lidocai-Epi 2%-1:100,000 Inj (Xylocaine- (09/03/17 20:00) Ed Discharge Order (09/03/17 20:22) Wound Care (09/03/17 20:24) Labs Laboratory Tests Test 09/03/17 18:40 White Blood Count 8.6 TH/MM3 Red Blood Count 4.69 MIL/MM3 Hemoglobin 13.7 GM/DL Hematocrit 43.3 % Mean Corpuscular Volume 92.4 FL Mean Corpuscular Hemoglobin 29.3 PG Mean Corpuscular Hemoglobin Concent 31.7 % Red Cell Distribution Width 13.6 % Platelet Count 188 TH/MM3 Mean Platelet Volume 8.7 FL Neutrophils (%) (Auto) 74.9 % Lymphocytes (%) (Auto) 10.5 % Monocytes (%) (Auto) 9.2 % Eosinophils (%) (Auto) 4.9 % Basophils (%) (Auto) 0.5 % Neutrophils # (Auto) 6.5 TH/MM3 Lymphocytes # (Auto) 0.9 TH/MM3 Monocytes # (Auto) 0.8 TH/MM3 Eosinophils # (Auto) 0.4 TH/MM3 Basophils # (Auto) 0.0 TH/MM3 CBC Comment DIFF FINAL Differential Comment Prothrombin Time 29.8 SEC Prothromb Time International Ratio 3.0 RATIO Activated Partial Thromboplast Time 34.2 SEC Blood Urea Nitrogen 16 MG/DL Creatinine 0.90 MG/DL Random Glucose 89 MG/DL Calcium Level 8.5 MG/DL Sodium Level 137 MEQ/L Potassium Level 4.1 MEQ/L Chloride Level 102 MEQ/L Carbon Dioxide Level 28.6 MEQ/L Anion Gap 6 MEQ/L Estimat Glomerular Filtration Rate 79 ML/MIN [facility] Medical Record Reviewed: Yes Supervised Visit with RAFAEL: No Interpretation(s) INR: 3.0, therapeutic Last Impressions Pelvis X-Ray 09/03/171743 Signed Impressions: Service Date/Time: Sunday, September 03, 2017 18:17 - CONCLUSION: The bony pelvic ring is grossly intact. Dirk Colon MD Head CT 09/03/171743 Signed Impressions: Service Date/Time: Sunday, September 03, 2017 18:00 - CONCLUSION: 1. No acute findings in the brain. 2. Age appropriate atrophy. Dirk Colon MD Chest X-Ray 09/03/171743 Signed Impressions: Service Date/Time: Sunday, September 03, 2017 18:17 - CONCLUSION: The lungs are clear. No evidence of pneumothorax. Dirk Colon MD Hand X-Ray 09/03/17 0000 Signed Impressions: Service Date/Time: Sunday, September 03, 2017 18:17 - CONCLUSION: 1. No evidence of recent bony injury. No radiopaque foreign bodies. 2. 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 Samano; please refer to her dictation Narrative Course Accepted in transfer of care from Dr. Samano; for follow up pending labs and disposition Diagnosis Primary Impression: Head injury Additional Impressions: Scalp laceration Multiple contusions Referrals: Primary Care Physician 2 days Patient Instructions: General Instructions Additional Instruction: Follow head injury precautions for 24 hours Wound check at 2 days suture removal in 5-7 days Use ice to areas of soft tissue injury. 12-24 hours then moist heat for comfort [place] may take acetaminophen as tolerated for pain associated with injuries or for fever 100.4F or greater Return to the emergency department for any concerns or change in condition Follow up with her primary care provider call office in a.m. to schedule follow- up appointment Disposition: 01 DISCHARGE HOME Condition: Stable Brittany Rosas MD Sep 03, 2017 19:30
[2017-09-03] MEDS ORDERED: LIDOCAINE 1%/EPINEPHrine 1:100,000 SOLN 20 ML VIAL INFIL ONE (19:45)
[2017-09-03] MEDS ORDERED: LIDOCAINE 2%/EPINEPHrine 1:100,000 20ML MDV INFIL ONE (20:00)
--- NOTE | 2017-09-03 20:20 | PD ---
Physical Exam Narrative I was asked repair patient's left eyebrow laceration. Data Data Last Documented VS Vital Signs Date Time Temp Pulse Resp B/P (MAP) Pulse Ox O2 Delivery O2 Flow Rate FiO2 09/03/17 20:00 16 09/03/17 19:36 Room Air 09/03/17 18:03 98 09/03/17 17:29 98.2 60 147/94 (111) Orders Orders Basic Metabolic Panel (Bmp) (09/03/17 17:44) Complete Blood Count With Diff (09/03/17 17:44) Prothrombin Time / Inr (Pt) (09/03/17 17:44) Act Partial Throm Time (Ptt) (09/03/17 17:44) Type And Screen (09/03/17 17:44) Chest, Single Ap (09/03/17 17:44) Pelvis, Ap Only (Routine) (09/03/17 17:44) Ct Brain W/O Iv Contrast(Rout) (09/03/17 17:44) Iv Access Insert/Monitor (09/03/17 17:44) Ecg Monitoring (09/03/17 17:44) Oximetry (09/03/17 17:44) Sodium Chloride 0.9% Flush (Ns Flush) (09/03/17 17:45) Hand, Complete ([id number]) (09/03/17 ) Acetaminophen (Tylenol) (09/03/17 19:00) Lidocai-Epi 2%-1:100,000 Inj (Xylocaine- (09/03/17 20:00) Labs Laboratory Tests Test 09/03/17 18:40 White Blood Count 8.6 TH/MM3 Red Blood Count 4.69 MIL/MM3 Hemoglobin 13.7 GM/DL Hematocrit 43.3 % Mean Corpuscular Volume 92.4 FL Mean Corpuscular Hemoglobin 29.3 PG Mean Corpuscular Hemoglobin Concent 31.7 % Red Cell Distribution Width 13.6 % Platelet Count 188 TH/MM3 Mean Platelet Volume 8.7 FL Neutrophils (%) (Auto) 74.9 % Lymphocytes (%) (Auto) 10.5 % Monocytes (%) (Auto) 9.2 % Eosinophils (%) (Auto) 4.9 % Basophils (%) (Auto) 0.5 % Neutrophils # (Auto) 6.5 TH/MM3 Lymphocytes # (Auto) 0.9 TH/MM3 Monocytes # (Auto) 0.8 TH/MM3 Eosinophils # (Auto) 0.4 TH/MM3 Basophils # (Auto) 0.0 TH/MM3 CBC Comment DIFF FINAL Differential Comment Prothrombin Time 29.8 SEC Prothromb Time International Ratio 3.0 RATIO Activated Partial Thromboplast Time 34.2 SEC Blood Urea Nitrogen 16 MG/DL Creatinine 0.90 MG/DL Random Glucose 89 MG/DL Calcium Level 8.5 MG/DL Sodium Level 137 MEQ/L Potassium Level 4.1 MEQ/L Chloride Level 102 MEQ/L Carbon Dioxide Level 28.6 MEQ/L Anion Gap 6 MEQ/L Estimat Glomerular Filtration Rate 79 ML/MIN MDM Supervised Visit with RAFAEL: Yes Procedures Procedure Narrative LACERATION LOCATION: Left eyebrow laceration LENGTH: 1 cm NUMBER OF STITCHES/JORY: 2 REPAIR: The area of the laceration was prepped with Betadine and sterilely draped. The laceration was infiltrated with 1% lidocaine with epi. The wound was copiously irrigated and explored without evidence of foreign body, tendon injury or neurovascular injury. The wound was closed using 5-0 Ethilon. This was a SINGLE layer repair. A sterile dressing was applied. The patient was advised to keep the dressing clean and dry. Patient tolerated the procedure well. Diagnosis Primary Impression: Head injury Additional Impressions: Scalp laceration Multiple contusions Referrals: Primary Care Physician 2 days Patient Instructions: General Instructions Additional Instruction: Follow head injury precautions for 24 hours Wound check at 2 days suture removal in 5-7 days Use ice to areas of soft tissue injury. 12-24 hours then moist heat for comfort [place] may take acetaminophen as tolerated for pain associated with injuries or for fever 100.4F or greater Return to the emergency department for any concerns or change in condition Follow up with her primary care provider call office in a.m. to schedule follow- up appointment Disposition: 01 DISCHARGE HOME Condition: Stable Sherry Mata Sep 03, 2017 20:20
[2017-09-03 20:56] VITALS: BP 119/69; PULSE 72; RESP 16; O2SAT 97
== END 2017-09-03 21:40 | disposition home or self-care (01) ==
LOC: PHED 17:15
DX: S09.90XA Unspecified injury of head, initial encounter (principal); S01.112A Laceration without foreign body of left eyelid and periocular area, initial encounter; M19.90 Unspecified osteoarthritis, unspecified site; E78.00 Pure hypercholesterolemia, unspecified; I25.10 Atherosclerotic heart disease of native coronary artery without angina pectoris; I10 Essential (primary) hypertension; I25.2 Old myocardial infarction; W10.1XXA Fall (on)(from) sidewalk curb, initial encounter; Z87.442 Personal history of urinary calculi
CPT/HCPCS: 12011; 70450; 71010; 72170; 73130; 80048; 85025; 85610; 85730; 86850; 86900; 86901

== ENCOUNTER 2017-09-07 11:31 | Emergency (ER) | payer MEDICARE, OTHER ==
[~2017-09-07] VITALS: Ht 172.7 cm; Wt 72.3 kg
[~2017-09-07 11:31] MED LIST changes: +BRIM0.2S4 EACH EYE; +DORZ2SOL RIGHT EYE; +GLUC500T4 PO; +LATA0.002 EACH EYE
[2017-09-07 11:49] VITALS: BP 121/55; PULSE 61; RESP 16; TEMP 98.6; O2SAT 98
--- NOTE | 2017-09-07 12:32 | PD ---
HPI Chief Complaint: Wound/Suture/Staple Re-Check Time Seen by Provider: 12:11 Travel History International Travel<30 days: No Contact w/Intl Traveler<30days: No History of Present Illness HPI 87-year-old male presents to emergency department for suture removal over his left brow. Patient states that he has been feeling well and is healing fine. Patient denies fever or chills. Denies chest pain or shortness of breath. States he does not have any more significant pain. In addition, patient states that his forearm has been a little tender and feels like there are "jhonatan" in his skin but does not want to do a thing about this today. PFSH Past Medical History Hx Anticoagulant Therapy: Yes (COUMADIN) Arthritis: Yes Asthma: No Autoimmune Disease: No Blood Disorders: No Anxiety: No Depression: No Heart Rhythm Problems: Yes Cancer: No Cardiac Catheterization: Yes Cardiovascular Problems: Yes (pacemaker) High Cholesterol: Yes Chemotherapy: No Chest Pain: Yes Congestive Heart Failure: No COPD: No Coronary Artery Disease: Yes Diabetes: No Diminished Hearing: Yes Endocrine: No GERD: No Glaucoma: No Genitourinary: No Headaches: No Hepatitis: No Hiatal Hernia: No Hypertension: Yes Immune Disorder: No Inguinal Hernia: Yes (BILAT GROINS WITH REPAIR) Implanted Vascular Access Dvce: Yes Kidney Stones: Yes Musculoskeletal: Yes (arthritis) Neurologic: No Psychiatric: No Reproductive: No Respiratory: No Immunizations Current: Yes Migraines: No Myocardial Infarction: Yes (X1) Radiation Therapy: No Renal Failure: No Seizures: No Sickle Cell Disease: No Sleep Apnea: No Thyroid Disease: No Ulcer: No Tetanus Vaccination: < 5 Years Influenza Vaccination: No Past Surgical History Abdominal Surgery: Yes (bilat ing hernia and mesh placement) AICD: No Appendectomy: No Arteriovenous Shunt: No Body Medical Devices: CARDIAC STENTS Cardiac Surgery: Yes (pacemaker) Cholecystectomy: No Coronary Stent: Yes (X 2) Ear Surgery: No Endocrine Surgery: No Eye Surgery: No Genitourinary Surgery: No Gynecologic Surgery: No Insulin Pump: No Joint Replacement: No Oral Surgery: No Pacemaker: No Thoracic Surgery: No Other Surgery: Yes (1987) Social History Alcohol Use: Yes (2 OZ DAILY ) Tobacco Use: No Substance Use: No Allergies-Medications (Allergen,Severity, Reaction): Coded Allergies: atorvastatin (Verified Allergy, Severe, HALLUCINATION, 09/07/17) oxycodone (Verified Allergy, Severe, HALLUCINATION, 09/07/17) Reported Meds & Prescriptions Reported Meds & Active Scripts Active Reported Dorzolamide Opth Drops (Dorzolamide HCl) 2% Soln 1 Drop RIGHT EYE BID Brimonidine Opth Drops (Brimonidine Tartrate) 0.2% Soln 1 Drop EACH EYE BID Latanoprost Opth Drops (Latanoprost) 0.005% Drops 1 Drop EACH EYE BID Refrigerate until opened. Glucosamine-Chondroitin 500-400 Mg Tab 1 Tab PO DAILY Warfarin 7.5 Mg Tab 5 Mg PO DAILY Atorvastatin (Atorvastatin Calcium) 40 Mg Tab 40 Mg PO HS Timolol Opth Drops 0.5 % Soln 1 Drop EACH EYE BID Saw [place] ([place] Repens) 450 Mg Cap 450 Mg PO DAILY Review of Systems Except as stated in HPI: all other systems reviewed are Neg Physical Exam Narrative GENERAL: Well-developed well-nourished in no apparent distress SKIN: Focused skin assessment warm/dry. Left brow- sutures in place without dehiscence, edema, or erythema. No exudate. Left forearm- healing skin tears without significant edema or erythema. HEAD: Atraumatic. Normocephalic. EYES: Pupils equal and round. No scleral icterus. No injection or drainage. Healing ecchymosis over the left eye ENT: No nasal bleeding or discharge. Mucous membranes pink and moist. NECK: Trachea midline. No JVD. CARDIOVASCULAR: Regular rate and rhythm. No murmur appreciated. RESPIRATORY: No accessory muscle use. Clear to auscultation. Breath sounds equal bilaterally. MUSCULOSKELETAL: No obvious deformities. No clubbing. No cyanosis. No edema. NEUROLOGICAL: Awake and alert. No obvious cranial nerve deficits. Motor grossly within normal limits. Normal speech. PSYCHIATRIC: Appropriate mood and affect; insight and judgment normal. Data Data Last Documented VS Vital Signs Date Time Temp Pulse Resp B/P (MAP) Pulse Ox O2 Delivery O2 Flow Rate FiO2 09/07/17 11:49 98.6 61 16 121/55 (77) 98 MDM Medical Decision Making Medical Screen Exam Complete: Yes Emergency Medical Condition: Yes Differential Diagnosis Suture removal, cellulitis, erysipelas Narrative Course 87-year-old male presents to emergency department for suture removal over his left brow. Patient states that he has been feeling well and is healing fine. Patient denies fever or chills. Denies chest pain or shortness of breath. States he does not have any more significant pain. In addition, patient states that his forearm has been a little tender and feels like there are "jhonatan" in his skin but does not want to do a thing about this today. Vital signs stable Physical exam findings of a well-healing left brow laceration with sutures in place. Suture removal completed today. Advised patient to follow up with his primary care physician. Advised to shower and the as usual. Return to the emergency room for worsening or persistent symptoms or signs of infection. Diagnosis Primary Impression: Encounter for removal of sutures Referrals: Primary Care Physician Additional Instructions: Follow up with your primary care physician within 2-3 days. If your symptoms persist or worsen, return to the emergency department. Keep area clean and dry. You may bathe as normal. You may use [id number] triple antibiotic ointments for your injury daily. Change dressings daily. If bleeding starts again, applied pressure and elevate the area. If he developed increased redness, swelling, or pain return to the emergency department. Disposition: 01 DISCHARGE HOME Condition: Stable Consuelo Parkinson Sep 07, 2017 12:32
== END 2017-09-07 13:29 | disposition home or self-care (01) ==
LOC: PHEFT 11:31
DX: Z48.02 Encounter for removal of sutures (principal); M19.90 Unspecified osteoarthritis, unspecified site; E78.00 Pure hypercholesterolemia, unspecified; I25.10 Atherosclerotic heart disease of native coronary artery without angina pectoris; I10 Essential (primary) hypertension; I25.2 Old myocardial infarction; Z87.442 Personal history of urinary calculi; Z79.01 Long term (current) use of anticoagulants; Z79.899 Other long term (current) drug therapy
CPT/HCPCS: 99281